=== PATIENT | male | born 1950 | race Caucasian/White ===

== ENCOUNTER → 2022-07-24 11:26 | Outpatient (CLI) | payer MEDICARE, OTHER, SELFPAY ==
[2022-07-24 13:37] LABS: Prostate Specific Antigen < 0.064 ng/mL (0.10-4.00)
== END ==
PROVIDERS: PCP Student in an Organized Health Care Education/Training Program; Referring Provider Nurse Practitioner Family; Visit Provider Nurse Practitioner Family
DX: C61 Malignant neoplasm of prostate (principal)
CPT/HCPCS: 36415; 84153

== ENCOUNTER → 2022-12-09 11:33 | Outpatient (CLI) | payer MEDICARE, OTHER, SELFPAY ==
[2022-12-09 14:26] LABS: Prostate Specific Antigen < 0.064 ng/mL (0.10-4.00)
== END ==
PROVIDERS: PCP Student in an Organized Health Care Education/Training Program; Referring Provider Urology; Visit Provider Urology
DX: C61 Malignant neoplasm of prostate (principal)
CPT/HCPCS: 36415; 84153

== ENCOUNTER → 2023-06-26 07:09 | Outpatient (CLI) | payer MEDICARE, OTHER, SELFPAY ==
[2023-06-26 08:56] LABS: Prostate Specific Antigen < 0.064 ng/mL (0.10-4.00)
== END ==
PROVIDERS: PCP Student in an Organized Health Care Education/Training Program; Referring Provider Urology; Visit Provider Urology
DX: C61 Malignant neoplasm of prostate (principal)
CPT/HCPCS: 36415; 84153

== ENCOUNTER → 2023-08-31 07:28 | Outpatient (CLI) | payer MEDICARE, OTHER, SELFPAY ==
[2023-08-31 09:23] LABS: Cholesterol 148 mg/dL (140-199); HDL Cholesterol 43 mg/dL (40-60); LDL Cholesterol Calculated 77 mg/dL (<100); Triglycerides 140 mg/dL (35-150)
== END ==
PROVIDERS: PCP Student in an Organized Health Care Education/Training Program; Referring Provider Student in an Organized Health Care Education/Training Program; Visit Provider Student in an Organized Health Care Education/Training Program
DX: E78.2 Mixed hyperlipidemia (principal); Z82.49 Family history of ischemic heart disease and other diseases of the circulatory system
CPT/HCPCS: 36415; 80061; 83695

== ENCOUNTER → 2024-06-21 15:34 | Outpatient (CLI) | payer MEDICARE, OTHER, SELFPAY ==
[2024-06-21 18:00] LABS: Prostate Specific Antigen < 0.064 ng/mL (0.10-4.00)
== END ==
PROVIDERS: PCP Student in an Organized Health Care Education/Training Program; Referring Provider Urology; Visit Provider Urology
DX: C61 Malignant neoplasm of prostate (principal)
CPT/HCPCS: 36415; 84153